=== PATIENT | male | born 1975 | race Caucasian/White ===

== ENCOUNTER 2023-12-16 08:56 | Emergency (ER) | payer BC, OTHER | END 2023-12-16 11:29 | disposition home or self-care (01) | LOC: ERS 08:56 | DX: S80.12XA Contusion of left lower leg, initial encounter (principal); I48.91 Unspecified atrial fibrillation; W22.8XXA Striking against or struck by other objects, initial encounter; Y93.89 Activity, other specified; Z79.82 Long term (current) use of aspirin; Z79.899 Other long term (current) drug therapy ==